=== PATIENT | female | born 1985 | race Caucasian/White ===

== ENCOUNTER 2016-11-19 21:36 | Emergency (ER) | payer SELFPAY ==
[~2016-11-19] VITALS: Ht 165.1 cm; Wt 118.1 kg
[~2016-11-19 21:36] MED LIST: ATEN25TA PO; CEFD300C2 PO; LISI-167 PO
[2016-11-19] MEDS ORDERED: HYDROmorphone 1 MG/ML, 1ML ONE (23:18)
[2016-11-19] MEDS ORDERED: ONDANSETRON 2MG/ML, 2ML ONE (23:19)
[2016-11-19] MEDS ORDERED: KETOROLAC 30 MG/1 ML ONE (23:19)
[2016-11-19] MEDS ORDERED: KETOROLAC 30 MG/1 ML IVPush ONE (23:30)
[2016-11-19] MEDS ORDERED: ONDANSETRON 2MG/ML, 2ML IVPush ONE (23:30)
[2016-11-19] MEDS: HYDROmorphone 1 MG/ML, 1ML IVPush PRN (23:59)
[2016-11-20 00:01] LABS: HCG UR OBC PASS
[2016-11-20 00:28] LABS: HEMOGLOBIN 15.7 g/dL (11.7-16.4)
[2016-11-20 00:39] LABS: BLOOD UREA NITROGEN 12 mg/dL (7-18)
[2016-11-20 00:44] LABS: ASPARTATE AMINO TRANSFERASE 35 U/L (15-37)
[2016-11-20] MEDS ORDERED: HYDROmorphone 1 MG/ML, 1ML ONE ×2 (00:44→00:47)
[2016-11-20] MEDS: HYDROmorphone 1 MG/ML, 1ML IVPush PRN (00:47)
[2016-11-20] MEDS ORDERED: CEFTRIAXONE PMX 1GM/50ML 50 ML ONE (01:59)
[2016-11-20] MEDS ORDERED: CEFTRIAXONE PMX 1GM/50ML 50 ML IV ONE (02:00)
[2016-11-20 02:05] VITALS: BP 144/65
[2016-11-20] MEDS ORDERED: HYDROcodone/APAP 10/325 MG TABLET ONE (02:36)
[2016-11-20] MEDS ORDERED: HYDROcodone/APAP 10/325 MG TABLET PO ONE (03:00)
== END 2016-11-20 02:56 | disposition home or self-care (01) ==
LOC: ED 23:59
DX: N30.01 Acute cystitis with hematuria (principal); I10 Essential (primary) hypertension; Z87.440 Personal history of urinary (tract) infections
CPT/HCPCS: 36415; 76770; 80053; 81001; 81025; 85025; 87040; 87086; 93005; 96365; 96375; 99285; J0696; J1170; J1885; J2405

== ENCOUNTER 2017-02-06 13:33 | Emergency (ER) | payer OTHER ==
[~2017-02-06] VITALS: Ht 165.1 cm; Wt 119.0 kg
[~2017-02-06 13:33] MED LIST changes: -CEFD300C2 PO; +CEFD300C37 PO; +IBUP200C PO; +LISI-170 PO
[2017-02-06] MEDS ORDERED: SODIUM CHLORIDE 0.9% 1,000 ML IV ONE (14:23)
[2017-02-06] MEDS ORDERED: SODIUM CHLORIDE FLUSH 10ML SYR IVF ONE (14:30)
[2017-02-06] MEDS ORDERED: SODIUM CHLORIDE 0.9% 1,000ML IVBOLUS ONE (14:30)
[2017-02-06 14:35] LABS: BLOOD UREA NITROGEN 14 mg/dL (7-18)
[2017-02-06] MEDS ORDERED: KETOROLAC 30 MG/1 ML ONE (15:44)
[2017-02-06 15:49] VITALS: BP 124/67
[2017-02-06] MEDS ORDERED: KETOROLAC 30 MG/1 ML IVPush ONE (16:00)
[2017-02-06 16:38] LABS: PATH.CAST-FLAG NOT PRESENT; SPERM-FLAG NOT PRESENT; SRC-FLAG NOT PRESENT; XTAL-FLAG NOT PRESENT; YLC-FLAG NOT PRESENT
== END 2017-02-06 17:05 | disposition home or self-care (01) ==
LOC: ED 16:30
DX: L03.313 Cellulitis of chest wall (principal); M79.1 Myalgia; D72.829 Elevated white blood cell count, unspecified; I10 Essential (primary) hypertension
CPT/HCPCS: 36415; 80048; 81001; 82040; 84703; 85025; 87086; 93005; 96374; 99285; J1885; J7030